=== PATIENT | female | born 1955 | race Caucasian/White ===

== ENCOUNTER 2023-09-01 21:49 | Emergency (ER) | payer MEDICARE, SELFPAY ==
--- NOTE | ~2023-09-01 | CT_ITS ---
CT of the Abdomen and Pelvis: Indication: Abdominal pain Technique: 2.5 mm axial scans were obtained through the abdomen and pelvis following intravenous adm inistration of 100 cc of Omnipaque 350. Dose reduction technique was used on this scan by utilizing a utomated exposure control and iterative reconstruction technique. The dose-length product (DLP) was 6 88.86 mGy-cm. Findings: Scans through the lung bases demonstrate moderate left pleural effusion and minimal right pleural fluid. The liver, spleen, pancreas, and adrenal glands are within normal limits. Gallbladder contracted with small stones versus cholecystectomy clips. There are 2 cystic masses in the left upper quadrant with dense peripheral eggshell calcification, measuring 4.6 cm in diameter each. Bilateral ureteral stent s are in place, with probable mild left hydronephrosis and minimal right hydronephrosis. No evidence of aortic aneurysm. No lymphadenopathy. No bowel obstruction or bowel wall thickening. There is evidence of prior bariatric surgery. There is prominent stool at the rectum. Images through the pelvis were performed. Urinary bladder unremarkable. Patient is post hysterectomy. No pelvic mass evident. There is trace ascites. Impression: Moderate left pleural effusion and minimal right pleural fluid. Bilateral ureteral stents in place with probable mild left hydronephrosis and minimal right hydroneph rosis. Fecal impaction. 2 cystic masses with dense eggshell peripheral calcification in the left upper quadrant. These are of uncertain precise etiology, but have an overall benign/chronic appearance. Reviewed, dictated and finalized at location M. [facility] AND GEOLOGIST Impression: Moderate left pleural effusion and minimal right pleural fluid. Bilateral ureteral stents in place with probable mild left hydronephrosis and m inimal right hydronephrosis. Fecal impaction. 2 cystic masses with dense eggshell peripheral calcification in the left upper quadrant. These are of uncertain precise etiology, but have an overall benign/c hronic appearance.
[2023-09-01 21:47] VITALS: BP 105/67; PULSE 108; RESP 24; TEMP 36.4; O2SAT 99
[2023-09-01 22:00] VITALS: BP 123/78; PULSE 101; RESP 13; O2SAT 99
[2023-09-01 22:39] VITALS: PULSE 94; RESP 16; O2SAT 100
[2023-09-01 22:45] VITALS: PULSE 97; RESP 18; O2SAT 98
--- NOTE | 2023-09-01 23:07 | ECG_ITS ---
Measurements Intervals [place] Rate: 92 P: 30 [place]: 190 QRS: 14 QRSD: 84 T: 34 QT: 356 QTc: 440 Interpretive Statements SINUS RHYTHM NO PREVIOUS ECG AVAILABLE FOR COMPARISON Electronically Signed On 09-02-2023 12:31:52 COAGULATING OPERATOR by Chelsea Schmidt M.D.
[2023-09-01 23:15] VITALS: BP 118/60; PULSE 94; RESP 13; O2SAT 100
[2023-09-01] MEDS: SODIUM CHLORIDE 0.9% IV 2,000 ML 999 ML IV CONT (23:21)
[2023-09-01] MEDS: HYDROmorphone HCL INJ (*CRX) 1 MG/ML SYR 0.5 MG IV PUSH (23:21)
[2023-09-01 23:37] LABS: Basophils Absolute Auto 0.1 K/mm3 (0.0-0.1); Basophils Percent Auto 1.1 % (0.2-1.2); Eosinophils Absolute Auto 0.1 K/mm3 (0-0.3); Eosinophils Percent Auto 0.8 % (0-4.4); Hematocrit 25.4 % (37.0-47.0); Hemoglobin 7.9 g/dL (12.0-15.0); Immature Granulocyte Absolute 0.06 K/mm3 (0.00-0.031); Immature Granulocyte Percent A 0.6 % (0-0.5); Lymphocytes Percent Auto 15.4 % (18.3-44.2); Mean Corpuscular HGB Conc 31.1 g/dl (32-36); Mean Corpuscular Hemoglobin 29.4 pg (26-34); Mean Corpuscular Volume 94.4 fl (80-100); Mean Platelet Volume 9.2 fl (7.4-10.4); Monocytes Absolute Auto 0.8 K/mm3 (0.1-0.6); Monocytes Percent Auto 7.7 % (2.6-8.5); Neutrophils Absolute Auto 7.8 K/mm3 (1.3-6.7); Neutrophils Percent Auto 74.4 % (45.5-73.1); Platelet Count Result 503 k/mm3 (150-375); Red Blood Count 2.69 M/mm3 (4.2-5.4); Red Cell Distribution Width 17.8 % (11.5-14.5); White Blood Count 10.4 K/mm3 (4.5-10.0)
[2023-09-01 23:52] LABS: Ethanol < 10 mg/dL (<10)
[2023-09-02 00:05] LABS: INR 1.1; Partial Thromboplastin Time 35.3 SECONDS (22.3-36.8)
[2023-09-02 00:09] LABS: Alanine Aminotransferase 12 U/L (6-35); Albumin Level 2.5 g/dL (3.5-5.1); Alkaline Phosphatase 112 U/L (38-126); Anion Gap 7 mmol/L (8-16); Aspartate Amino Transferase 24 U/L (14-36); Bilirubin,Total 0.5 mg/dL (0.2-1.3); Blood Urea Nitrogen 14 mg/dL (7-17); Calcium 8.1 mg/dL (8.4-10.2); Carbon Dioxide 16 mmol/L (22-30); Chloride 114 mmol/L (98-107); Estimated CRCL calculation 75 ml/min; Estimated Glomerular Filt Rate > 60; Glucose 95 mg/dL (65-110); Lipase 63 U/L (23-300); Magnesium 2.1 mg/dL (1.6-2.3); Phosphorus 2.7 mg/dL (2.5-4.5); Potassium 3.3 mmol/L (3.4-5.0); Sodium 137 mmol/L (137-145)
[2023-09-02 00:34] LABS: Lactic Acid Reflex 0.7 mmol/L (0.7-2.0)
[2023-09-02 01:17] VITALS: BP 127/69; PULSE 96; RESP 18; O2SAT 98
[2023-09-02 02:15] LABS: Appearance Urine Cloudy (Clear); Bacteria Urine 4+ /hpf; Bilirubin Urine Negative (Negative); Blood Urine 3+ (Negative); Color Urine Dark Yellow (Yellow); Glucose Urine UA Negative (Negative); Ketones Urine 1+ mg/dL (Negative); Leukocyte Esterase Ur 2+ LEU/UL (Negative); Need Manual Microscopic Reviewed; Nitrate Urine Positive (Negative); Non Pathogenic Casts 0-2; Protein Urine 2+ mg/dL (Negative); RBC Urine >100 /hpf (0-2); Specific Grav Ur 1.022 (1.001-1.035); Squamous Epithelial Cell Urine None seen /hpf (Few); WBC Urine >100 /hpf; pH Urine 7.5 (5.0-9.0)
[2023-09-02] MEDS: oxyCODONE HCL (*CRX) 5 MG TAB IR PO (02:16)
[2023-09-02 02:17] LABS: Add Urine Microscopic? YES
[2023-09-02] MEDS: MIDAZOLAM HCL (*CRX) 2 MG/2 ML VIAL 1 MG IV PUSH (02:23)
[2023-09-02 02:29] LABS: Creatine Kinase < 20 U/L (30-135)
[2023-09-02 02:36] VITALS: BP 125/89; PULSE 97; RESP 14; O2SAT 100
[2023-09-02 02:42] LABS: Amphetamine Screen Urine Negative (Negative); Barbiturate Screen Urine Negative (Negative); Benzodiazepines Screen Urine Negative (Negative); Cannabinoid Screen Urine Positive (Negative); Cocaine Screen Urine Negative (Negative); Methadone Screen Urine Negative (Negative); Opiate Screen Urine Positive (Negative); Phencyclidine Screen Urine Negative (Negative)
--- NOTE | 2023-09-02 02:43 | ED.GENADULT ---
HPI - General Adult General Chief complaint: Abdominal Pain Stated complaint: POST OP ABD PAIN Time Seen by Provider: 09/01/23 22:59 History of Present Illness HPI narrative: This is a 68-year-old female presenting ED with chief complaint of abdominal pain. Patient has been having crampy a pain in the lower abdomen for the last 2 days. It is associated with constipation. patient is on daily opiates for chronic pain although she stopped taking them 2 days ago because she thought it might help with her constipation. patient notes dysuria as well. She denies fever chills nausea vomiting chest pain difficulty breathing. Last bowel movement was 3 days ago. Related Data Allergies Allergy/AdvReac Type Severity Reaction Status Date / Time No Known Allergies Allergy Verified 09/01/23 23:20 [facility] Past Medical History Medical History (Updated 09/02/23 @ 02:55 by Ned Vicente MD) Chronic pain Ureteral stent present Surgical History Surgical History (Updated 09/02/23 @ 02:45 by Ned Vicente MD) H/O gastric bypass Exam Narrative: APPEARANCE: No apparent distress. Head: atraumatic. EYES: EOMI, NOSE: Atraumatic NECK: Trachea midline RESPIRATORY: No increased rate of breathing CTAB CARDIOVASCULAR: RRR, ABDOMINAL: Abdomen is soft, nondistended with no guarding rebound, mild tenderness in the lower quadrants MUSCULOSKELETAl: No obvious deformities NEURO: Alert. Moving 4/4 extremities SKIN:: Warm, dry. Normal color PSYCHIATRIC: Normal affect Course Vital Signs Vital signs: Vital Signs Temperature 97.6 F 09/01/23 21:47 Pulse Rate 108 H 09/01/23 21:47 Respiratory Rate 24 H 09/01/23 21:47 Blood Pressure 105/67 09/01/23 21:47 Pulse Oximetry 99 09/01/23 21:47 Oxygen Delivery Room Air 09/01/23 21:47 Temperature 97.6 F 09/01/23 21:47 Pulse Rate 97 09/02/23 02:36 Respiratory Rate 14 09/02/23 02:36 Blood Pressure 125/89 09/02/23 02:36 Pulse Oximetry 100 09/02/23 02:36 Oxygen Delivery Room Air 09/01/23 21:47 Procedures Rectal Disimpaction Rectal Disimpaction #1: Rectal Disimpaction Date: 09/02/23 Time out performed rectal disimpaction: Yes Indication: fecal impaction Procedural Sedation: No Sedation/Analgesia: opioids and benzodiazepines Technique: manual disimpaction with gloved finger Result: significant stool output Patient Tolerated Procedure: well Complications: pain Medical Decision Making MDM Narrative Medical decision making narrative: -Course: 68-year-old female presenting with crampy lower abdominal pain and constipation. Workup here showed fecal impaction. She was manually disimpacted with removal of hard stool. Dulcolax suppository was placed. Patient also found have a urinary tract infection. Given a dose of ceftriaxone and placed on cefdinir. Given close follow-up with urology she does have stents in place. White count is normal. Patient is not septic or ill-appearing. Patient will be discharged with stool softeners and antibiotics. -DDX includes but is not limited to: Sepsis, gastroenteritis, viral syndrome, UTI, pneumonia, colitis appendicitis -Co-morbidities complicating care: chronic pain gastric bypass ureteral stents constipation -Independent interpretation of studies: urine indicative infection. Hemoglobin 7.9 with a normal MCV. UDS positive for opiates and cannabis. CT abdomen pelvis showed enterocolitis and prominent rectal stool ball. Independent EKG interpretation: Rhythm [sinus], Rate [92], [place] -[normal], [place] -[normal], QRS [narrow], QTC [normal], T waves -[negative for concerning inversions], ST Segments - [Negative for concerning elevations] Final interpretations: [Normal Sinus Rhythm] -Procedures: disimpaction -Interventions: 2 L normal saline, 0.5 mg Dilaudid, 5 mg oxycodone, 1 mg Versed, Dulcolax suppository, 1 g ceftriaxone, 40 mg potassium -Shared decision m
[2023-09-02] MEDS: POTASSIUM CHLORIDE 20 MEQ ER TABLET 40 MEQ PO (03:01)
== END 2023-09-02 03:33 | disposition home or self-care (01) ==
PROVIDERS: Emergency Provider Emergency Medicine
DX: K56.41 Fecal impaction (principal); N39.0 Urinary tract infection, site not specified; G89.29 Other chronic pain; Z98.84 Bariatric surgery status; Z96.0 Presence of urogenital implants
CPT/HCPCS: 36415; 74177; 80053; 80307; 81001; 82550; 83605; 83690; 83735; 84100; 85025; 85610; 85730; 87086; 87181; 93005; 96361; 96365; 96375; 99284; A9270; J0696; J1170; J2250; J7030; Q9967

== ENCOUNTER 2023-09-17 15:59 | Emergency (ER) | payer MEDICARE, SELFPAY ==
[2023-09-17] VITALS (30 sets, daily range): BP systolic 99–146; BP diastolic 54–94; PULSE 81–94; RESP 11–19; TEMP 36.6–36.7; O2SAT 91–100
--- NOTE | ~2023-09-17 | US_ITS ---
EXAMINATION:US venous doppler LE BI INDICATION:Leg swelling TECHNIQUE: Multiple grayscale, color flow and Doppler images of the right and left lower extremity de ep venous systems were obtained and reviewed. COMPARISON:No prior studies for comparison. FINDINGS: The common femoral, superficial femoral and popliteal veins demonstrate normal respiratory variation, augmentation and compressibility. Color flow is also seen within the posterior tibial, pe roneal, greater saphenous and profunda veins. There is deep venous thrombosis of the right gastrocnem ius vein. IMPRESSION: 1: Deep venous thrombosis of the right gastrocnemius vein. Reviewed, dictated and finalized at location A.
--- NOTE | ~2023-09-17 | XR_ITS ---
XR chest 2V 09/17/2023 17:22 Indication: Shortness of breath Procedure: 2 view chest Comparison: No prior studies for comparison. Findings: There are bilateral pleural effusions. There is bibasilar airspace disease which may repres ent atelectasis or pneumonia. There are large masses in the left upper abdomen with peripheral calcif ications of uncertain significance. Impression: 1: Bibasilar airspace disease may represent pneumonia and/or atelectasis. 2: Small pleural effusions. Reviewed, dictated and finalized at location A. Impression: 1: Bibasilar airspace disease may represent pneumonia and/or atelectasis. 2: Small pleural effusions.
--- NOTE | ~2023-09-17 | CT_ITS ---
EXAMINATION: CT abdomen pelvis w con DATE: 09/17/2023 18:27 INDICATION: Status post hysterectomy. Vaginal bleeding. TECHNIQUE: Computed tomography (CT) of the abdomen and pelvis was performed with 100 cc Omnipaque 350 intravenous contrast. The dose-length product was 960.46 mGy-cm. Automated exposure control and iter ative reconstruction technique were employed. COMPARISON: CT dated 09/02/2023. FINDINGS: Stable cystic masses of the left upper abdomen with peripheral eggshell calcification, larg est measuring 4.6 cm, likely benign. These may originate from the adjacent left kidney or pancreas. T here are bilateral internal ureteral stents in expected position. There is diffuse subcutaneous edema . There are bilateral pleural effusions, left greater than right. There is a stable hypoperfusion of the liver along the falciform ligament, likely fatty infiltration of the liver. The spleen, adrenal g lands are unremarkable. Gallbladder is not identified. There is dependent atelectasis. Nonobstructive bowel gas pattern. Moderate colonic fecal loading. No free air. No focal lytic or blastic lesions. S tatus post partial fusion at L3-4. IMPRESSION: 1. No acute abdominal abnormality. 2: Bilateral pleural effusions, left greater than right, with underlying compressive atelectasis. Reviewed, dictated and finalized at location A. IMPRESSION: 1. No acute abdominal abnormality. 2: Bilateral pleural effusions, left greater than right, with underlying compre ssive atelectasis.
--- NOTE | 2023-09-17 16:05 | ECG_ITS ---
Measurements Intervals [place] Rate: 81 P: 2 [place]: 186 QRS: 9 QRSD: 98 T: 23 QT: 401 QTc: 467 Interpretive Statements SINUS RHYTHM EARLY PRECORDIAL R/S TRANSITION CONSIDER INFERIOR INFARCT, AGE INDETERMINATE NONSPECIFIC T-WAVE ABNORMALITY- ANTEROLAT/HIGH LAT LEADS BASELINE ARTIFACT- I, II, AVR, AVL, V1 ABNORMAL ECG COMPARISON TO PRIOR ECG 09-01-23 23:54 NO SIGNIFICANT CHANGES Electronically Signed On 09-17-2023 19:45:29 CDT by Reginaldo Dorantes D.O.
[2023-09-17] MEDS: ONDANSETRON INJ 4 MG/2 ML VIAL IV PUSH (16:34)
[2023-09-17] MEDS: SODIUM CHLORIDE 0.9% IV 1,000 ML 999 ML IV CONT ×2 (16:34)
[2023-09-17 17:00] LABS: Basophils Absolute Auto 0.1 K/mm3 (0.0-0.1); Basophils Percent Auto 1.4 % (0.2-1.2); Eosinophils Absolute Auto 0.1 K/mm3 (0-0.3); Eosinophils Percent Auto 1.4 % (0-4.4); Hematocrit 21.5 % (37.0-47.0); Immature Granulocyte Absolute 0.02 K/mm3 (0.00-0.031); Immature Granulocyte Percent A 0.4 % (0-0.5); Lymphocytes Absolute Auto 0.99 K/mm3 (0.9-3.2); Lymphocytes Percent Auto 17.4 % (18.3-44.2); Mean Corpuscular HGB Conc 30.2 g/dl (32-36); Mean Corpuscular Hemoglobin 27.9 pg (26-34); Mean Corpuscular Volume 92.3 fl (80-100); Mean Platelet Volume 8.6 fl (7.4-10.4); Monocytes Absolute Auto 0.6 K/mm3 (0.1-0.6); Monocytes Percent Auto 9.7 % (2.6-8.5); Neutrophils Percent Auto 69.7 % (45.5-73.1); Platelet Count Result 400 k/mm3 (150-375); Red Blood Count 2.33 M/mm3 (4.2-5.4); Red Cell Distribution Width 17.1 % (11.5-14.5); White Blood Count 5.7 K/mm3 (4.5-10.0)
[2023-09-17 17:12] LABS: Lactic Acid Reflex 1.1 mmol/L (0.7-2.0)
[2023-09-17 17:13] LABS: Alanine Aminotransferase 13 U/L (6-35); Albumin Level 2.3 g/dL (3.5-5.1); Alkaline Phosphatase 110 U/L (38-126); Anion Gap 3 mmol/L (8-16); Aspartate Amino Transferase 24 U/L (14-36); Bilirubin,Total 0.3 mg/dL (0.2-1.3); Blood Urea Nitrogen 10 mg/dL (7-17); Calcium 7.5 mg/dL (8.4-10.2); Carbon Dioxide 22 mmol/L (22-30); Chloride 112 mmol/L (98-107); Estimated CRCL calculation 65 ml/min; Estimated Glomerular Filt Rate > 60; Glucose 91 mg/dL (65-110); Potassium 2.8 mmol/L (3.4-5.0); Sodium 137 mmol/L (137-145)
[2023-09-17 17:16] LABS: Hemoglobin 6.5 g/dL (12.0-15.0)
[2023-09-17 17:18] LABS: Platelet Estimate Increased (Adequate); Schistocytes None Seen
[2023-09-17 17:19] LABS: Anisocytosis 2+; Hypochromasia 1+
--- NOTE | 2023-09-17 17:20 | ED.GENADULT ---
HPI - General Adult General Chief complaint: Syncope <Aris Shah MD - Last Filed: 09/18/23 15:24> Stated complaint: syncopal <Aris Shah MD - Last Filed: 09/18/23 15:24> Time Seen by Provider: 09/17/23 16:06 <Aris Shah MD - Last Filed: 09/18/23 15:24> History of Present Illness HPI narrative: patient is a 68-year-old female who presents ER for weakness the syncope. She got up from using the restroom and got lightheaded and lost consciousness and was helped to the ground with the aid of her son. Patient was on her way to the ER any ways. Patient is a gynecology oncology patient from [facility]. She had a hysterectomy and was found to have ovarian cancer and had the cancer removed. She reports that stage I and she does not require radiation or chemotherapy. She reports she has had progressive weakness since her surgery on 08/04/2023. She has had poor oral intake. She has no chest pain. She reports persistent bleeding from the vagina that is light. She thought initially it was coming from her urine. No vaginal discharge. <Aris Shah MD - Last Filed: 09/18/23 15:24> Related Data Allergies/adverse reactions: Allergies Allergy/AdvReac Type Severity Reaction Status Date / Time aspirin AdvReac Unknown Verified 09/17/23 16:06 <Aris Shah MD - Last Filed: 09/18/23 15:24> Review of Systems Review of Systems: All systems reviewed & are unremarkable except as noted in HPI and below <Aris Shah MD - Last Filed: 09/18/23 15:24> Constitutional: Constitutional: Denies chills, Reports fatigue and Denies fever(s) <Aris Shah MD - Last Filed: 09/18/23 15:24> ENT: Reports system reviewed and no additional complaints, except as documented <Aris Shah MD - Last Filed: 09/18/23 15:24> Cardiovascular: Cardiovascular: Reports no additional cardiovascular complaints <Aris Shah MD - Last Filed: 09/18/23 15:24> Respiratory: Respiratory: Reports no additional respiratory complaints <Aris Shah MD - Last Filed: 09/18/23 15:24> Gastrointestinal: Gastrointestinal: Reports no additional gastrointestinal complaints <Aris Shah MD - Last Filed: 09/18/23 15:24> Genitourinary: Genitourinary: Reports abnormal vaginal bleeding, Denies nocturia and Denies dysuria <Aris Shah MD - Last Filed: 09/18/23 15:24> Musculoskeletal: Musculoskeletal: Reports no additional musculoskeletal complaints <Aris Shah MD - Last Filed: 09/18/23 15:24> PMFSH Past Medical History Medical History: Medical History (Updated 09/17/23 @ 19:31 by Aris Shah MD) Chronic pain Ovarian cancer Ureteral stent present <Aris Shah MD - Last Filed: 09/18/23 15:24> Surgical History Surgical History: Surgical History (Updated 09/17/23 @ 19:19 by Aris Shah MD) H/O gastric bypass History of hysterectomy <Aris Shah MD - Last Filed: 09/18/23 15:24> Exam Narrative: GENERAL: chronically ill-appearing, well-nourished, and in no acute distress. HEAD: Normocephalic, atraumatic. ENT: Mucous membranes moist. NECK: Supple. CHEST: Clear to auscultation. No respiratory distress. HEART: Regular rate and rhythm. Normal peripheral pulses. ABDOMEN: Soft, nontender, nondistended. : Unremarkable external vaginal exam. Speculum exam reveals a friable vaginal cuff with bleeding and whitish brown granulation tissue. The sifuentes of the vagina are brown in appearance with additional yellow plaque-like lesions. EXTREMITIES: Normal range of motion. No edema. SKIN: Warm, dry, no rash. scattered bruising to all extremities. NEURO: Alert and oriented x3. PSYCH: Normal mood and affect. <Aris Shah MD - Last Filed: 09/18/23 15:24> Course Course Emergency Course: ZYCH 1900: patient signed out to me pending transfer to outside hospital. Patient received 2 units of blood and 60 total mg of potas
[2023-09-17] MEDS: POTASSIUM CHLORIDE 20 MEQ ER TABLET 40 MEQ PO (18:56)
[2023-09-17] MEDS: KCL 20 MEQ/SW 100 ML 100 ML 50 MEQ IVPB (19:15)
[2023-09-17] MEDS: fentaNYL CITRATE INJ (*CRX) 100 MCG/2 ML VIAL 50 MCG IV PUSH (19:34)
[2023-09-17] MEDS: SODIUM CHLORIDE 0.9% IV 250 ML 30 ML IV CONT (22:16)
[2023-09-17] MEDS: TUBING, BLOOD SET 1 EACH XX (22:28)
--- NOTE | 2023-09-17 22:28 | PC.NURSE ---
Liter of normal saline hung to run with the potassium to decrease IV site burning, vorb from Dr. Vicente.
[2023-09-17] MEDS: HYDROmorphone HCL INJ (*CRX) 1 MG/ML SYR 0.5 MG IV PUSH (22:56)
[2023-09-18] VITALS (52 sets, daily range): BP systolic 112–136; BP diastolic 54–78; PULSE 79–91; RESP 10–24; TEMP 36.3–36.9; O2SAT 90–100
[2023-09-18 00:01] LABS: Basophils Absolute Auto 0.1 K/mm3 (0.0-0.1); Basophils Percent Auto 1.4 % (0.2-1.2); Eosinophils Absolute Auto 0.1 K/mm3 (0-0.3); Eosinophils Percent Auto 1.5 % (0-4.4); Hematocrit 28.2 % (37.0-47.0); Hemoglobin 8.6 g/dL (12.0-15.0); Immature Granulocyte Absolute 0.02 K/mm3 (0.00-0.031); Immature Granulocyte Percent A 0.2 % (0-0.5); Lymphocytes Absolute Auto 1.27 K/mm3 (0.9-3.2); Lymphocytes Percent Auto 15.1 % (18.3-44.2); Mean Corpuscular HGB Conc 30.5 g/dl (32-36); Mean Corpuscular Hemoglobin 28.4 pg (26-34); Mean Corpuscular Volume 93.1 fl (80-100); Monocytes Absolute Auto 0.8 K/mm3 (0.1-0.6); Monocytes Percent Auto 9.3 % (2.6-8.5); Neutrophils Absolute Auto 6.1 K/mm3 (1.3-6.7); Neutrophils Percent Auto 72.5 % (45.5-73.1); Platelet Count Result 412 k/mm3 (150-375); Red Blood Count 3.03 M/mm3 (4.2-5.4); Red Cell Distribution Width 16.2 % (11.5-14.5); White Blood Count 8.4 K/mm3 (4.5-10.0)
[2023-09-18 00:14] LABS: Alanine Aminotransferase 15 U/L (6-35); Albumin Level 2.4 g/dL (3.5-5.1); Alkaline Phosphatase 112 U/L (38-126); Anion Gap 4 mmol/L (8-16); Aspartate Amino Transferase 36 U/L (14-36); Bilirubin,Total 0.4 mg/dL (0.2-1.3); Blood Urea Nitrogen 9 mg/dL (7-17); Calcium 7.3 mg/dL (8.4-10.2); Carbon Dioxide 22 mmol/L (22-30); Chloride 113 mmol/L (98-107); Estimated CRCL calculation 65 ml/min; Estimated Glomerular Filt Rate > 60; Glucose 114 mg/dL (65-110); Potassium 3.5 mmol/L (3.4-5.0); Sodium 139 mmol/L (137-145)
[2023-09-18] MEDS: TUBING, BLOOD SET 1 EACH XX (00:25)
[2023-09-18] MEDS: HYDROmorphone HCL INJ (*CRX) 1 MG/ML SYR 0.5 MG IV PUSH ×2 (03:14→06:13)
[2023-09-18 05:55] LABS: Basophils Absolute Auto 0.1 K/mm3 (0.0-0.1); Basophils Percent Auto 1.5 % (0.2-1.2); Eosinophils Absolute Auto 0.2 K/mm3 (0-0.3); Eosinophils Percent Auto 2.6 % (0-4.4); Hematocrit 28.4 % (37.0-47.0); Hemoglobin 8.9 g/dL (12.0-15.0); Immature Granulocyte Absolute 0.03 K/mm3 (0.00-0.031); Immature Granulocyte Percent A 0.4 % (0-0.5); Lymphocytes Absolute Auto 1.43 K/mm3 (0.9-3.2); Lymphocytes Percent Auto 20.9 % (18.3-44.2); Mean Corpuscular HGB Conc 31.3 g/dl (32-36); Mean Corpuscular Hemoglobin 28.4 pg (26-34); Mean Corpuscular Volume 90.7 fl (80-100); Mean Platelet Volume 8.5 fl (7.4-10.4); Monocytes Absolute Auto 0.7 K/mm3 (0.1-0.6); Monocytes Percent Auto 9.8 % (2.6-8.5); Neutrophils Absolute Auto 4.4 K/mm3 (1.3-6.7); Neutrophils Percent Auto 64.8 % (45.5-73.1); Platelet Count Result 318 k/mm3 (150-375); Red Blood Count 3.13 M/mm3 (4.2-5.4); Red Cell Distribution Width 15.9 % (11.5-14.5); White Blood Count 6.9 K/mm3 (4.5-10.0)
[2023-09-18 06:03] LABS: Alanine Aminotransferase 12 U/L (6-35); Albumin Level 2.1 g/dL (3.5-5.1); Alkaline Phosphatase 101 U/L (38-126); Anion Gap 2 mmol/L (8-16); Aspartate Amino Transferase 26 U/L (14-36); Bilirubin,Total 0.3 mg/dL (0.2-1.3); Blood Urea Nitrogen 8 mg/dL (7-17); Calcium 7.1 mg/dL (8.4-10.2); Carbon Dioxide 21 mmol/L (22-30); Chloride 116 mmol/L (98-107); Estimated CRCL calculation 75 ml/min; Estimated Glomerular Filt Rate > 60; Glucose 87 mg/dL (65-110); Potassium 3.3 mmol/L (3.4-5.0); Sodium 139 mmol/L (137-145)
--- NOTE | 2023-09-18 08:47 | PC.NURSE ---
updated [facility], no beds at this time
[2023-09-18] MEDS: KETOROLAC 30 MG/ML VIAL (*BKC) IV PUSH (11:04)
--- NOTE | 2023-09-18 11:41 | PC.NURSE ---
ordered pt heart healthy lunch tray.
[2023-09-18] MEDS: IBUPROFEN 600 MG TABLET PO (14:52)
== END 2023-09-18 16:50 | disposition short-term general hospital (02) ==
PROVIDERS: Emergency Medicine; Emergency Provider Emergency Medicine
DX: R55 Syncope and collapse (principal); D64.9 Anemia, unspecified; E87.6 Hypokalemia; N93.9 Abnormal uterine and vaginal bleeding, unspecified; I82.461 Acute embolism and thrombosis of right calf muscular vein
CPT/HCPCS: 36415; 36430; 71046; 74177; 80053; 83605; 85025; 86850; 86900; 86901; 86923; 93005; 93970; 96361; 96365; 96366; 96375; 96376; 99285; A9270; J1170; J1885; J2405; J3010; J3480; J7030; J7050; P9016; Q9967

== ENCOUNTER 2023-12-23 14:48 | Observation (INO) | payer MEDICARE, SELFPAY ==
[2023-12-23] VITALS (20 sets, daily range): BP systolic 70–141; BP diastolic 56–87; PULSE 66–96; RESP 12–20; TEMP 36.5–36.6; O2SAT 95–100
--- NOTE | ~2023-12-23 | XR_ITS ---
XR chest 1V portable Ordering provider: Garo Eckert MD History: 68 years Female with . weakness AND DIZZINESS X 1 DAY . Comparison: September 17, 2023 FINDINGS: MEDIASTINUM: The cardiac silhouette is not enlarged. LUNGS: No infiltrates, effusions or pneumothorax. Prominent markings in the right lower lobe. Possible nodule in the left upper lobe measuring 1.3 cm. Three-month follow-up advised. OTHER: Calcifications seen in the upper abdomen unchanged. No free air under the diaphragm. Dextroscoliosis. IMPRESSION: No acute cardiopulmonary pathology. Possible nodule in the left upper lobe. Follow-up in 3 months advised. Calcification seen in the upper abdomen unchanged. Reviewed, dictated and finalized at location A.
--- NOTE | 2023-12-23 15:02 | ECG_ITS ---
Test Date: 2023-12-23 15:08:57 Measurements Intervals [place] Rate: 72 P: -15 [place]: 170 QRS: -1 QRSD: 80 T: 17 QT: 414 QTc: 454 Interpretive Statements SINUS RHYTHM No previous ECG available for comparison Electronically Signed On 12-24-2023 14:28:06 CDT by Fred Pizano M.D.
[2023-12-23] MEDS: SODIUM CHLORIDE 0.9% IV 1,000 ML 999 ML (15:15)
[2023-12-23 15:16] LABS: Basophils Absolute Auto 0.1 K/mm3 (0.0-0.1); Basophils Percent Auto 1.3 % (0.2-1.2); Eosinophils Absolute Auto 0.1 K/mm3 (0-0.3); Hematocrit 32.2 % (37.0-47.0); Hemoglobin 10.2 g/dL (12.0-15.0); Immature Granulocyte Absolute 0.02 K/mm3 (0.00-0.031); Immature Granulocyte Percent A 0.3 % (0-0.5); Lymphocytes Absolute Auto 1.65 K/mm3 (0.9-3.2); Lymphocytes Percent Auto 23.9 % (18.3-44.2); Mean Corpuscular HGB Conc 31.7 g/dl (32-36); Mean Corpuscular Hemoglobin 30.4 pg (26-34); Mean Corpuscular Volume 95.8 fl (80-100); Mean Platelet Volume 9.8 fl (7.4-10.4); Monocytes Absolute Auto 0.7 K/mm3 (0.1-0.6); Monocytes Percent Auto 9.4 % (2.6-8.5); Neutrophils Absolute Auto 4.4 K/mm3 (1.3-6.7); Neutrophils Percent Auto 63.1 % (45.5-73.1); Platelet Count Result 261 k/mm3 (150-375); Red Blood Count 3.36 M/mm3 (4.2-5.4); Red Cell Distribution Width 15.4 % (11.5-14.5); White Blood Count 6.9 K/mm3 (4.5-10.0)
[2023-12-23 15:27] LABS: Alanine Aminotransferase 11 U/L (6-35); Albumin Level 2.9 g/dL (3.5-5.1); Alkaline Phosphatase 80 U/L (38-126); Anion Gap 9 mmol/L (4-12); Aspartate Amino Transferase 21 U/L (14-36); Bilirubin,Total 0.4 mg/dL (0.2-1.3); Blood Urea Nitrogen 16 mg/dL (7-17); Calcium 8.1 mg/dL (8.4-10.2); Carbon Dioxide 19 mmol/L (22-30); Chloride 114 mmol/L (98-107); Estimated CRCL calculation 65 ml/min; Estimated Glomerular Filt Rate > 60; Glucose 166 mg/dL (65-110); Sodium 142 mmol/L (137-145)
--- NOTE | 2023-12-23 16:11 | ED.GENADULT ---
HPI - General Adult General Chief complaint: Recheck/Abnormal Lab/Rx Stated complaint: low blood pressure Time Seen by Provider: 12/23/23 15:33 History of Present Illness HPI narrative: 68-year-old female present to the emergency department for evaluation for low blood pressure. Patient reports that in 2018 she had gastric bypass and [place]. Patient states that over the last 4 months she has lost approximately 80 lb. Patient has not yet had follow-up with her physicians does have follow-up with GI with [facility] on Friday. Patient was at physical therapy and was having some low blood pressures today. Patient denies any chest pain or shortness of breath. Patient denies any associated nausea vomiting or diarrhea. Patient just states that she has not been eating or drinking well. Patient was orthostatic upon arrival to the emergency department. Related Data Home Medications Medication Instructions Recorded Confirmed acetaminophen 300 mg-codeine 60 mg 1 tablet PO TID PRN Pain 12/23/23 12/23/23 tablet amitriptyline 100 mg tablet 100 mg PO HS 12/23/23 12/23/23 apixaban 2.5 mg tablet (Eliquis) 2.5 mg PO DAILY 12/23/23 12/23/23 duloxetine 60 mg capsule,delayed 60 mg PO BID 12/23/23 12/23/23 release ergocalciferol (vitamin D2) 1,250 1,250 mcg PO WEEKLY 12/23/23 12/23/23 mcg (50,000 unit) capsule (Vitamin D2) fludrocortisone 0.1 mg tablet 0.1 mg PO DAILY 12/23/23 12/23/23 hydrocodone 10 mg-acetaminophen 1 tablet PO TID PRN Pain 12/23/23 12/23/23 325 mg tablet hydroxyzine HCl 50 mg tablet 50 mg PO TID PRN Itching 12/23/23 12/23/23 levothyroxine 25 mcg tablet 25 mcg PO DAILY 12/23/23 12/23/23 meclizine 12.5 mg tablet 12.5 mg PO Q8H PRN Dizziness 12/23/23 12/23/23 methocarbamol 500 mg tablet 500 mg PO BID 12/23/23 12/23/23 midodrine 5 mg tablet 15 mg PO TID 12/23/23 12/23/23 montelukast 10 mg tablet 10 mg PO DAILY 12/23/23 12/23/23 ondansetron 4 mg disintegrating 4 mg PO HS 12/23/23 12/23/23 tablet oxybutynin chloride 5 mg tablet 5 mg PO HS 12/23/23 12/23/23 oxybutynin chloride 5 mg tablet 10 mg PO DAILY 12/23/23 12/23/23 potassium chloride 20 mEq 20 meq PO BID 12/23/23 12/23/23 tablet,extended release(part/cryst) (Klor-Con M) topiramate 100 mg tablet 100 mg PO Q12H 12/23/23 12/23/23 zolpidem 5 mg tablet 5 mg PO HS 12/23/23 12/23/23 Allergies Allergy/AdvReac Type Severity Reaction Status Date / Time aspirin AdvReac Unknown Verified 12/23/23 19:13 Review of Systems Review of Systems: All systems reviewed & are unremarkable except as noted in HPI and below PMFSH Past Medical History Medical History (Updated 12/23/23 @ 16:49 by Garo Eckert MD) Chronic pain Ovarian cancer Ureteral stent present Surgical History Surgical History (Updated 09/17/23 @ 19:19 by Aris Shah MD) H/O gastric bypass History of hysterectomy Social History Social History Smoking status: Never smoker Second hand tobacco smoke exposure: Yes Alcohol intake: never Substance use: never Do You Feel Safe in your Home?: Yes Lack of Transportation: No Lack of Food: Never True Current Housing: I Have Housing Concerned About Future Housing: No Difficulty Paying Gas/Electric Bills: No Difficulty Paying for Meds: No Currently Unemployed: No Education: High School Diploma/GED Difficulty w/ Childcare or Family Care: No Spiritual care concerns: No Exam Narrative: APPEARANCE: Well appearing, no pain, no distress, well-nourished. HEAD: normocephalic, atraumatic. EYES: PERRLA/EOMI, conjunctivae clear. NOSE: Normal no drainage NECK: Supple. No adenopathy, no masses. RESPIRATORY: Airway patent, respirations nonlabored. Clear to auscultation bilaterally, no rales, rhonchi, wheezing. CARDIOVASCULAR: Regular rate and rhythm without murmurs rubs or gallops. ABDOMINAL: Soft, nontender, nondistended, normal bowel sounds MUSCULOSKELETAL: Moves all extremities. Strength/ROM intact, No edema, No calf t
[2023-12-23] MEDS: POTASSIUM CHLORIDE INJ 40 MEQ in SODIUM CHLORIDE 0.9% IV 500 ML 130 MEQ IVPB (16:16)
[2023-12-23] MEDS: SODIUM CHLORIDE 0.9% IV 1,000 ML 999 ML IV CONT (16:17)
[2023-12-23 16:32] LABS: Influenza A QL RT-PCR Negative (Negative); Influenza B QL RT-PCR Negative (Negative); RSV RNA, RT-PCR Negative (Negative); SARS-CoV-2 RNA PCR Negative (Negative)
[2023-12-23 16:46] LABS: Appearance Urine Cloudy (Clear); Bacteria Urine 4+ /hpf; Bilirubin Urine Negative (Negative); Blood Urine Negative (Negative); Calcium Oxalate Crystals Urine Present /hpf; Color Urine Yellow (Yellow); Glucose Urine UA Negative (Negative); Ketones Urine Negative (Negative); Leukocyte Esterase Ur 3+ LEU/UL (Negative); Need Manual Microscopic Reviewed; Nitrate Urine Negative (Negative); Non Pathogenic Casts 0-2; Protein Urine Negative (Negative); Specific Grav Ur 1.015 (1.001-1.035); Squamous Epithelial Cell Urine None Seen /hpf (Few); WBC Urine >100 /hpf (0-3)
[2023-12-23 16:47] LABS: Add Urine Microscopic? YES
--- NOTE | 2023-12-23 18:46 | PM.IMHP ---
H&P: HPI History of Present Illness Date/Time: 12/23/23 20:00 Chief Complaint: Low blood pressure. Narrative: This is a pleasant 68-year-old female with history of uterine cancer status post total hysterectomy in July 2023, DVT, ulcers, anemia, hypothyroidism, depression, and orthostatic hypotension who presented to the emergency department for evaluation of low blood pressure. Her about a month ago and when she was at the hospital visiting him she had a syncopal episode which was attributed to orthostatic hypotension. She has been on midodrine since that time and takes it as scheduled. Unfortunately she still has days where she suffers from low blood pressures. Today was 1 of those days. She woke up just not feeling well with weakness and dizziness with standing. Home PT was visiting today and found the patient's blood pressure to be 70/50 and she was sent to the ER. Aside from the expected depression from the loss of her spouse recently, she has otherwise been feeling okay and she denies fever, chills, sweats, cold and flu symptoms, chest pain, shortness a breath, cough, nausea, vomiting, diarrhea, and dysuria. She reports that she is eating and drinking okay but admits that ?weight keeps coming off? since having bariatric surgery in 2019. Thus far she has lost upwards of 180 lb. In the ED: Labs were significant for hemoglobin of 10.2, potassium 3.0, glucose 166, total protein 6.0, albumin 2.9. Urine was positive for 3+ leukocyte esterase, greater than 100 WBC, and 4+ bacteria. Blood pressure was 70/58 on arrival. Despite receiving 2 L of normal saline her orthostatic vital signs remained positive (102/58 to 82/56) and she is being admitted in this setting for further hydration and close monitoring. Review of Systems Review of Systems: 12 systems were reviewed and are negative except for as per HPI. [facility] Past Medical History Medical History (Updated 12/23/23 @ 23:55 by Carmen Duenas PA-C) Chronic anemia Chronic pain Endometrial cancer (07/2023) Orthostatic hypotension Surgical History Surgical History (Updated 12/23/23 @ 23:58 by Carmen Duenas PA-C) History of cholecystectomy History of gastric bypass History of hysterectomy For endometrial cancer. History of spinal fusion History of ureter stent Social History Social History (Updated 12/23/23 @ 23:53 by Carmen Duenas PA-C) Social History: Surrogate medical decision maker: Jeffry Godoy, son. Code status: Full code. Smoking status: Never smoker Second hand tobacco smoke exposure: Yes Alcohol intake: never Substance use: never Do You Feel Safe in your Home?: Yes Lack of Transportation: No Lack of Food: Never True Current Housing: I Have Housing Concerned About Future Housing: No Difficulty Paying Gas/Electric Bills: No Difficulty Paying for Meds: No Currently Unemployed: No Education: High School Diploma/GED Difficulty w/ Childcare or Family Care: No Spiritual care concerns: No Meds Home Medications and Allergies Home Medications Medication Instructions Recorded Confirmed Type docusate calcium 240 mg capsule 240 mg PO BID #30 caps 09/02/23 12/23/23 Rx acetaminophen 300 mg-codeine 60 mg 1 tablet PO TID PRN Pain 12/23/23 12/23/23 History tablet amitriptyline 100 mg tablet 100 mg PO HS 12/23/23 12/23/23 History apixaban 2.5 mg tablet (Eliquis) 2.5 mg PO DAILY 12/23/23 12/23/23 History duloxetine 60 mg capsule,delayed 60 mg PO BID 12/23/23 12/23/23 History release ergocalciferol (vitamin D2) 1,250 1,250 mcg PO WEEKLY 12/23/23 12/23/23 History mcg (50,000 unit) capsule (Vitamin D2) fludrocortisone 0.1 mg tablet 0.1 mg PO DAILY 12/23/23 12/23/23 History hydrocodone 10 mg-acetaminophen 1 tablet PO TID PRN Pain 12/23/23 12/23/23 History 325 mg tablet hydroxyzine HCl 50 mg tablet 50 mg PO TID PRN Itching 12/23/23 12/23/23 History levothyroxine 25 mcg tablet 25 mcg PO BRAD
--- NOTE | 2023-12-23 18:57 | ADMGEN ---
This patient, Sona Godoy, was admitted to Medical Room 245-. Patient/family oriented to hospital policies and general routines including ID bracelet, bed and alarms, visiting hours, pain management, procedures, bathroom and other care routines, personal items, smoking policy, room service/diet, and visiting hours. Information on how to activate the Rapid Response Team has been discussed. Patient/Family are encouraged to report perceived risks to care and to ask questions if they do not understand what they are told or what they should do.
[2023-12-23] MEDS: SODIUM CHLORIDE 0.9% IV 1,000 ML 125 ML IV CONT (20:42)
[2023-12-24] VITALS (8 sets, daily range): BP systolic 104–160; BP diastolic 64–75; PULSE 78–91; RESP 16–18; TEMP 36.5–37.2; O2SAT 99–100; BMI 23.6
[2023-12-24] MEDS: LACTATED RINGERS 1,000 ML 75 ML IV CONT (00:14)
[2023-12-24] MEDS: TOPIRAMATE 100 MG TABLET PO ×2 (01:19→08:23)
[2023-12-24] MEDS: LEVOTHYROXINE SODIUM 25 MCG TABLET PO (06:15)
[2023-12-24 08:09] LABS: Alanine Aminotransferase 11 U/L (6-35); Albumin Level 2.8 g/dL (3.5-5.1); Alkaline Phosphatase 91 U/L (38-126); Anion Gap 5 mmol/L (4-12); Aspartate Amino Transferase 20 U/L (14-36); Bilirubin,Total 0.4 mg/dL (0.2-1.3); Blood Urea Nitrogen 12 mg/dL (7-17); Calcium 8.2 mg/dL (8.4-10.2); Carbon Dioxide 23 mmol/L (22-30); Chloride 112 mmol/L (98-107); Estimated CRCL calculation 75 ml/min; Estimated Glomerular Filt Rate > 60; Glucose 90 mg/dL (65-110); Potassium 3.8 mmol/L (3.4-5.0); Sodium 140 mmol/L (137-145)
[2023-12-24] MEDS: oxyBUTYnin CHLORIDE 5 MG TABLET 10 MG PO (08:23)
[2023-12-24] MEDS: POTASSIUM CHLORIDE 20 MEQ ER TABLET PO (08:23)
[2023-12-24] MEDS: MONTELUKAST SODIUM 10 MG TABLET PO (08:23)
[2023-12-24] MEDS: DULoxetine HCL 60 MG CAPSULE.DR PO (08:23)
[2023-12-24] MEDS: FLUDROCORTISONE ACETATE 0.1 MG TABLET PO (08:23)
[2023-12-24] MEDS: MIDODRINE HCL 2.5 MG TABLET 15 MG PO (08:23)
[2023-12-24] MEDS: cefTRIAXone 2 GM/NS 100 ML 2 GM/100 ML BAG IVPB (08:24)
[2023-12-24] MEDS: ACETAMINOPHEN 325 MG TABLET 650 MG PO (08:28)
--- NOTE | 2023-12-24 10:59 | PM.DS ---
DS: Admitting Diagnosis Discharge Date 12/24/2023 1030 Admitting Diagnosis Ortho static hypotension DS: Discharge Diagnosis Discharge Diagnosis (1) Orthostatic hypotension: Code(s): I95.1 - Orthostatic hypotension Status: Acute Assessment and Plan: Orthostatic blood pressures upon arrival did note hypotension Continue midodrine 15 mg t.i.d. Most likely related to dehydration IV fluids given Appears to be resolved Current orthostatic blood pressures: (2) Hypokalemia: Code(s): E87.6 - Hypokalemia Status: Acute Assessment and Plan: Potassium on admission 3.0 Replacement given Currently 3.8 Continue to trend and adjust therapy as indicated (3) Abnormal urinalysis: Code(s): R82.90 - Unspecified abnormal findings in urine Status: Acute Assessment and Plan: UA appeared infectious Ceftriaxone given in the ED and continued inpatient Will discharge patient on Augmentin Follow cultures peripherally Adjust therapy as indicated (4) Chronic anemia: Code(s): D64.9 - Anemia, unspecified Status: Acute Assessment and Plan: H/H sable at 10.2/32.2 Appears to be chronic Continue to trend labs Transfuse if Hgb <7.0 (5) Severe protein-calorie malnutrition: Code(s): E43 - Unspecified severe protein-calorie malnutrition Status: Acute Assessment and Plan: Significant weight loss noted Dietitian consult Likely related to depression Continue supplements Encourage p.o. intake Plan The patient presented to the emergency department for evaluation of low blood pressures as detailed in HPI. Labs, imaging, EKG, and all reports were personally reviewed. She has problems with orthostatic hypotension and is on midodrine at home. Unfortunately she is having issues with her blood pressures dropping today despite taking her morning dose. She may be a bit dry and is being hydrated overnight. Continue midodrine during waking hours. Monitor orthostatic vital signs initiate fall precautions. Potassium is low and will be replaced and monitored. UA is abnormal with bacteria, WBC, and leukocyte esterase though she has no symptoms of UTI. It is my understanding that she still has ureteral stents in place thus will obtain a urine culture. She received a dose of ceftriaxone in the ED and will hold on scheduling further antibiotics pending urine culture. Sepsis seems unlikely as she is afebrile with a normal WBC count. Anemia stable on review of previous labs. Her medications will be reviewed and resumed as appropriate. Findings and treatment plan were discussed with the patient. Questions were solicited and answered to satisfaction. The patient's medical management will be taken over by the hospitalist team in a.m. DS: Summary Hospital Course Hospital Course: Patient is 68-year-old female with a past medical history of uterine cancer status post hysterectomy, DVT, ulcers, anemia, hypothyroidism, depression, orthostatic hypotension who presented the ED with complaints of low blood pressure. Home physical therapy was following the patient and noted that her blood pressure was 70/50 patient was sent to the ED. In the ED patient was given IV fluids. UA did come back infectious appearing. Patient was given IV fluids and started on ceftriaxone. Currently patient is feeling well she denies any current chest pain, shortness a breath, nausea, vomiting, diarrhea constipation. At this point patient is stable for discharge for labs and vital signs. Orthostatic blood pressures appear to be better. Will have patient follow-up primary care for further medication adjustments or instructions. Status at Discharge Functional status at discharge: uses cane/walker Overall status at discharge: patient is progressing back to baseline Time Spent with Patient Time attestation: Total time spent providing and/or coordinating discharge servic
[2023-12-24] MEDS: MIDODRINE HCL 10 MG TABLET PO (12:58)
[2023-12-24] MEDS: MIDODRINE HCL 2.5 MG TABLET 5 MG PO (12:58)
[2023-12-24] MEDS: LACTATED RINGERS 1,000 ML 999 ML IV CONT (14:49)
== END 2023-12-24 15:55 | disposition home health service (06) ==
LOC: ANHED 16:04 → ANH2MED 18:32
PROVIDERS: Nurse Practitioner; Admitting Provider General Practice; Emergency Provider Emergency Medicine; Visit Provider General Practice
DX: I95.1 Orthostatic hypotension (principal); E87.6 Hypokalemia; R82.90 Unspecified abnormal findings in urine; D64.9 Anemia, unspecified; Z98.84 Bariatric surgery status; E43 Unspecified severe protein-calorie malnutrition; Z68.23 Body mass index [BMI] 23.0-23.9, adult; G89.29 Other chronic pain; Z79.01 Long term (current) use of anticoagulants; Z79.891 Long term (current) use of opiate analgesic; Z85.43 Personal history of malignant neoplasm of ovary; Z20.822 Contact with and (suspected) exposure to COVID-19; Z98.1 Arthrodesis status
CPT/HCPCS: 36415; 71045; 80053; 81001; 85025; 87040; 87077; 87086; 87088; 87181; 87637; 93005; 96361; 96365; 96366; 96368; 99285; A9270; G0378; J0696; J3480; J7030; J7040; J7120